=== PATIENT | male | born 1995 | race Caucasian/White ===

== ENCOUNTER → 2021-09-19 02:16 | Outpatient (CLI) | payer OTHER, SELFPAY ==
[2021-09-20 02:21] LABS: SARS-CoV-2 RNA PCR Positive
== END ==
PROVIDERS: PCP Family Medicine; Visit Provider Physician Assistant
DX: U07.1 COVID-19 (principal)
CPT/HCPCS: C9803; U0003; U0005

== ENCOUNTER 2022-10-02 12:59 | Outpatient (CLI) | payer OTHER, SELFPAY ==
[2022-10-02 14:27] LABS: Influenza A QL RT-PCR Negative (Negative); Influenza B QL RT-PCR Negative (Negative); SARS-CoV-2 RNA PCR Negative
== END 2022-10-02 13:00 | disposition home or self-care (01) ==
LOC: ANHLAB 13:01
PROVIDERS: PCP Family Medicine; Visit Provider Nurse Practitioner
DX: R68.89 Other general symptoms and signs (principal); Z20.822 Contact with and (suspected) exposure to COVID-19
CPT/HCPCS: 87636

== ENCOUNTER 2024-11-18 02:51 | Day surgery (SDC) | payer OTHER, SELFPAY ==
[2024-10-25 14:01] VITALS: BMI 26.2
--- OUTSIDE RECORDS SUMMARY | 2024-11-18 02:58 | XMS_ITS | Data Portability ---
Author Organization MD - [employer] [facility] Address [address] [place] [address] Care Team Providers Care Assembly Member Name Role Phone NAVI MACIEL Unavailable Assessment No assessment recorded. Plan of Treatment Reminders Order Date Submit Date Provider Last Modified By Organization Details Last Modified Time Details Appointments None recorded. Lab STI panel 2018 019 [email or web address] [place], [address] [place], [address], 9 10:20:55 Referral None recorded. Procedures None recorded. Surgeries None recorded. Imaging None recorded. Medication Orders azithromyc in 500 mg tablet 2018 019 INTERFACE [facility], [address] [place], [address], 9 13:22:25 Patient TargetsNo targets recorded. Patient Instructions Encounter Date Encounter Id Patient Instructions Last Modified By Organization Details Last Modified Time 05/28/2019 [id number] painful urinatio n (dysuria): care instructions Not available 05/28/2019 13:22:15 03 discussed wit h patient/parent Not available 05/28/2019 13:22:28 Reason for Referral None Reported. Results Created Date Observation Date Name Description Value Unit Range Abnormal Flag Note LastModifiedBy Organization Detail LastModifiedTime 05/28/20 19 06/04/2019 CT + NG RNA, PCR, unspe cifie d speci men chlamydia trachomatis, SONIA Negati ve negati ve Not Available [facility] ([facility]) [address], [place], [address], 06/04/2019 06:05:34 05/28/2006/04/2019 CT + NG RNA, PCR, unspe cifie d speci men neisseria gonorrhoeae, SONIA Negati ve negati ve Not Available [facility] ([facility]) [address], [place], [address], 06/04/2019 06:05:34 05/28/2006/01/2019 RPR (rapi d plasm a reagi n), serum RPR Non Reacti ve non reacti ve Not Available [facility] ([facility]) [address], [place], [address], 06/04/2019 06:05:35 05/28/2006/01/2019 HIV 1+2 AB + HIV 1 p24 Ag, quali tativ e immun oassa y, serum HIV screen 4TH generation wrfx Non Reacti ve non reacti ve Not Available [facility] ([facility]) [address], [place], [address], 06/04/2019 06:05:36 05/28/2006/01/2019 hepat itis C Ab, signa l-to- cutof f, serum or plasm a hep C virus Ab <0.1 s/co_ ratio 0.0-0. 9 Negat vic: < 0.8 Indet ermin ate: 0.8 - 0.9 Posit vic: > 0.9 The CDC recom mends that a posit vic HCV antib irving resul t be follo wed up with a HCV Nucle ic Acid Ampli ficat ion test (5507 13). Not Available [facility] ([facility]) [address], [place], [address], 06/04/2019 06:05:38 05/28/2006/01/2019 HSV 2 IgG Ab, QN, IA, serum hsv 2 IgG, type spec <0.91 index 0.00-0 .90 Negat vic <0.91 Equiv ocal 0.91 - 1.09 Posit vic >1.09 Note: Negat vic indic ates no antib odies detec carlie to HSV-2 . Equiv ocal may sugge st early infec tion. If clini elaine appro priat e, retes t at later date. Posit vic indic ates antib odies detec carlie to HSV-2 . Not Available [facility] ([facility]) [address], [place], [address], 06/04/2019 06:05:39 05/28/2006/01/2019 HBsAg (hepa titis B surfa ce Ag), EIA, serum HBsAg screen Negati ve negati ve Not Available [facility] ([facility]) [address], [place], [address], 06/04/2019 06:05:40 Result Notes None recorded. Problems No Known Problems Procedures Surgical History Date Name Laterality Status Provider Name and Address Organization Details Recorded Time Hernia repair completed CHAY THRASHER [employer], [employer] 05/28/2019 13:17:14 Imaging Results None recorded. Procedure Notes None recorded. Medical Equipment None Reported. Allergies No known drug allergies Medications Name Sig Start Date Stop Date Status Note LastModified by Organization Details LastModified Time azithromycin 500 mg tablet Take 2 tablets every day by oral route for 1 day. 2018 active Not Available Not Available Not Avai lable Vitals Date Recorded Body weight Body mass index (BMI) Body height Body temperature Heart rate Oxygen saturation Oxygen saturation in Arterial blood by Pulse oximetry Systolic blood pressure Diastolic blood pressure Provider Name and Address Organization Details Last Updated DateTime 9 59544.8 6 g 22.8 kg/m2 184.15 cm 97.5 [degF] 64 /min 97 % 97 % 125 mm[Hg] 76 mm[Hg] CHAY THRASHER [employer], [employer] [employer] 9 13:13:51 Social History Question Answer Notes LastModified by Organizat ion Details LastModified Time Tobacco Smoking Status Former Smoker CHAY cha [employer] 05/28/2019 13:14:43 Do You Have An Advance Directive? No [email or web address] Information not available 05/28/2019 What Is Your Level Of Alcohol Consumption? Moderate [email or web address] Information not available 05/28/2019 What Is Your Level Of Caffeine Consumption? Occasional [email or web address] Information not available 05/28/2019 How Much Tobacco Do You Chew? None [email or web address] Information not available 05/28/2019 What Type Of Diet Are You Following? REGULAR [email or web address] Information not available 05/28/2019 Which Illicit Or Recreational Drugs Have You Used? N/a [email or web address] Information not available 05/28/2019 Do You Or Have You Ever Used E-cigarettes Or Vape? Never Used Electronic Cigarettes [email or web address] Information not available 05/28/2019 Education 2 Year College [email or web address] Informat ion not available 05/28/2019 What Is Your Occupation? [employer]able [employer] Student [email or web address] Information not available 05/28/2019 Marital Status Single Informat ion not available 05/28/2019 What Was The Date Of Your Most Recent Tobacco Screening? 05/28/2019 Information not available 05/29/2019 General Stress Level Medium [email or web address] Information not available 05/28/2019 How Many Years Have You Smoked Tobacco? 3 [email or web address] Information not available 05/28/2019 Sex: Unknown Functional Status Question Answer Note LastModified by Organization D etails LastModified Time What is your exercise level? Heavy [email or web address] Information not available 05/28/2019 Mental Status None recorded. Family History Relationship Description Onset Age of this Age Resolved Age Notes LastModified by Organization Details LastModified Time Father No current problems or disability [email or web address] Not available 13:14:32 Mother No current problems or disability [email or web address] Not available 13:14:32 Notes:05/28/19 [place] Medical History Condition Response Seizures/Convulsions/Epilepsy N Anxiety N Development or behavioral disorders N Blood disorders N Hospitalizations N Congenital abnormalities N Depression N Heart problems N Skin Problems N Eating disorders N Ear or hearing problems N Headaches or dizziness N Bladder or kidney problems/disease N Diabetes N Serious injuries N Asthma or breathing problems N Treatment/Exposure to STD N Sleeping Problems N Cancer N Allergies N Liver disease N Thyroid disease N ADHD N Vision or eye problems N Drug/Alcohol Abuse N Muscle/joint/bone problems Y Mood D/O N Past Encounters Encounter ID Performer Location Encounter Start Date Encounter Closed Date Diagnosis/Indication Diagnosis SNOMED-CT Code Diagnosis ICD10 Code Diagnosis Note [id number] Navi Maciel MD [facility] [address] [address] 05/28/2019 13:06:09 05/31/2019 10:52:42 Dysuria 94267132 R30.0 Risk of ex posure to communicable disease 080552401 Z20.89 Health Concerns Section Related Observation LastModified by Organization Detai ls LastModified Time None Recorded Concern Status LastModified by Organization Details LastModified Time None Recorded Advance Directives Directive N: Payers Encounter Date Sequence Insurance Name Policy Number Policy Vásquez Covered Member ID Vásquez Member ID Guarantor Name 05/28/2019 1 [facility] [id number] Lamberto Gerber [id number] Milton Gerber Notes Date Note Type Note Provider Name and Address Organization Details Recorded Time 05/28/2019 text/html Sexually Transmi tted InfectionReported bypatient.Location:pen is Quality:worsening; irritation Severity:moderate Duration:constant Onset/Timing:last few days Context:last sexual activity: (3-4 wks) Modifying Factors:nothing gives relief Associated Symptoms:no abdominal pain; no anal warts; no back pain; no chills; no constipation; no diarrhea; no dribbling; no dysuria; no emptying; no fever; no frequency; no groin pain; no hematuria; no nausea; no nocturia; no odor; no painful intercourse; no vulvar/penile blisters; no vulvar/penile rash; no vulvar/penile warts; no perineum warts; no pruritus; no straining stream; no stress incontinence; no temperature; no urethral discharge; no urethral itch; no urgency; no urge incontinence; no vomiting; no weight loss; irritation, painful urination Navi Maciel MD [address] [place], [address], [place] - [facility] 05/28/2019 13:22:32
--- OUTSIDE RECORDS SUMMARY | 2024-11-18 02:58 | XMS_ITS | Patient Health Summary ---
Author Organization [facility] [email or web address] Address [address] [place] [address] Care Team Providers Care Loading Machine Operator Name Role Phone Unavailable Primary Care Provider Unavailabl e Note from [facility] [email or web address],non-owned Affiliates and Associated Physician Practices is amultiple site organization consisting of ambulatory clinics and hospital sitesin [place], [place], [place] and [place]. This disclosure is being madepursuant to the Care Everywhere program and may not contain all information available regarding this patient. Last updated 18.[facility] [email or web address] Social History Tobacco Use Types Packs/Day Years Used Date Smoking Tobacco: Never Assessed Sex and Gender Information Value Date Recorded Sex Assigned at Not on file Gender Identity Not on file Sexual Orientation Not on file Procedures * GROSS + MICRO EXAM(Performed 10/30/2001) * GROSS + MICRO EXAM(Performed 01/26/1999) Results * GROSS + MICRO EXAM (10/30/2001 7:45 AM TRIAGE SPECIALIST) Only the most recent of2 resultswithin the time period is included. Result CASE NUMBER [id number] [facility] PATH REPORT Comment: ORDERING PHYSICIAN CLEMENTINE [place] SPECIMEN TYPE Hernia Sac-R. Inguinal CLINICAL HISTORY The patient is a 5-year-old boy with a right inguinal hernia who underwent repair of the same. GROSS DESCRIPTION The specimen labeled with the patient's name and right inguinal hernia sac is received fresh for gross and microscopic examination and consists of a 1.5 x 1.0 x 0.2 cm membranous portion of glistening pink- lorenz soft tissue submitted in toto as A . (CT/dcr) MICROSCOPIC DESCRIPTION (1 H/E) DIAGNOSIS DIAGNOSIS HERNIA SAC-RIGHT INGUINAL - MESOTHELIAL LINED FIBROUS CONNECTIVE TISSUE CONSISTENT WITH HERNIA SAC. This case has been personally reviewed and interpreted by the attending (teaching) pathologist. Back Tender Paper Machine LUZ ELENA BOBBY RESIDENT IN PATHOLOG Ruth Bolton M.D. PATHOLOGIST Binh Rasmussen M.D. ELECTRONICALLY BINH LEE MISCELLANEOUS SAMPLES / Unknown 10/30/2001 7:45 AM TRIAGE SPECIALIST 10/30/2001 10:24 AM TRIAGE SPECIALIST Historical Provider LAB - PATHOLOGY/C YTOLOGY ORDERABLES [facility] PATH REPORT
--- OUTSIDE RECORDS SUMMARY | 2024-11-18 02:58 | XMS_ITS | Clinical Summary ---
Author Organization [facility] [employer] Address [address] [place] [address] Care Team Providers Care Rotor Winder Name Role Phone Unavailable Primary Care Provider Unavailabl e Source Comments [facility] [employer],non-owned Affiliates and Associated Physician Practices is amultiple site organization consisting of ambulatory clinics and hospital sitesin [place], [place], [place] and [place]. This disclosure is being madepursuant to the Care Everywhere program and may not contain all information available regarding this patient. Last updated 18.[facility] [employer] Social History Tobacco Use Types Packs/Day Years Used Date Smoking Tobacco: Never Assessed Sex and Gender Information Value Date Recorded Sex Assigned at Not on file Gender Identity Not on file Sexual Orientation Not on file Plan of Treatment Health Maintenance Due Date Last Done Comments HIV SCREENING 2012 HPV VACCINE (1 - Male 3-dose series) 2012 HEPATITIS C SCREENING 11/11/2015 DTAP/TDAP/TD VACCINES (1 - Tdap) 2016 HEPATITIS B VACCINE (1 of 3 - 19+ 3-dose series) 2016 COVID-19 VACCINE (1 - 2023-2 5 season) 2024 INFLUENZA VACCINE (#1) 2024 DEPRESSION SCREENING 09/22/2024 ZOSTER VACCINE (1 of 2) 2047 HIB VACCINE Aged Out No longer eligi ble based on patient's age to complete this topic MENINGOCOCCAL (Group B) VACCINE Aged Out No longer eligible based on patient's age to complete this topic MENINGOCOCCAL VACCINE Aged Out No bg giovanny eligible based on patient's age to complete this topic PNEUMOCOCCAL VACCINE Aged Out No long er eligible based on patient's age to complete this topic
--- OUTSIDE RECORDS SUMMARY | 2024-11-18 02:58 | XMS_ITS | Referral Summary ---
Author Organization [facility] Address [address] [place] [address] Care Team Providers Care Machining Department Supervisor Name Role Phone Unavailable Primary Care Provider Unavailabl e Source Comments [facility],non-owned Affiliates and Associated Physician Practices is amultiple site organization consisting of ambulatory clinics and hospital sitesin [place], [place], [place] and [place]. This disclosure is being madepursuant to the Care Everywhere program and may not contain all information available regarding this patient. Last updated 18.[facility] [employer] Social History Tobacco Use Types Packs/Day Years Used Date Smoking Tobacco: Never Assessed Sex and Gender Information Value Date Recorded Sex Assigned at Not on file Gender Identity Not on file Sexual Orientation Not on file Plan of Treatment Not on file
[2024-11-18 13:34] VITALS: BP 144/87; PULSE 82; RESP 14; TEMP 36.6; O2SAT 98
[2024-11-18] MEDS: LACTATED RINGERS 1,000 ML 150 ML IV CONT (13:39)
--- NOTE | 2024-11-18 15:12 | PM.IMHP ---
H&P: HPI History of Present Illness Date/Time: 11/18/24 15:12 Chief Complaint: Rectal bleeding Narrative: the patient was seen in our office for an episode of moderate to large rectal bleeding, bright red blood type. This is not associated with urgency, tenesmus, abdominal pain, fever or diarrhea. He is referred for colonoscopy. Review of Systems Review of Systems: All systems reviewed & are unremarkable except as noted in HPI and below PMFSH Past Medical History Medical History Closed fracture of left wrist Surgical History Surgical History H/O hernia repair (~1999) Second 2001 Social History Social History (Updated 08/17/24 @ 14:34 by Mervat Austin CMA) Smoking status: Never smoker Alcohol intake: current Drinks per week: 8 Alcohol use details: social Substance use: never Substance use type: does not use Living arrangements: with family Spiritual care concerns: No Meds Home Medications and Allergies Home Medications ?Medication ?Instructions ?Recorded ?Confirmed ?Type No Home Medications 07/20/24 10/25/24 History Allergies Allergy/AdvReac Type Severity Reaction Status Date / Time No Known Allergies Allergy Verified 11/18/24 13:32 Vital Signs Vital Signs - 24 hr 11/18/24 13:34 Temperature 98 F Pulse Rate 82 Respiratory Rate 14 Blood Pressure 144/87 H Pulse Oximetry 98 Oxygen Delivery Room Air Exam Const: General: cooperative and healthy appearing Resp: Effort & Inspection: normal respiratory effort and able to speak in complete sentences Auscultation: clear to auscultation bilaterally Cardio: Rate: regular rate Rhythm: regular rhythm GI: Inspection: normal to inspection GI Palp: No No hepatosplenomegaly present Auscultation: normal bowel sounds Rectal Exam: deferred Skin: General skin exam: normal color Psych: Appearance: grossly normal Mental Status: mental status grossly normal Assessment and Plan Assessment and plan (1) Hematochezia: Code(s): K92.1 - Melena Status: Acute Assessment and Plan: The patient is deemed a good candidate for the procedure. Consent signed. Will proceed.
--- NOTE | 2024-11-18 15:17 | WPDANESEPPF ---
Anes - Initial Pre Proc Eval Procedure: Operation Date: 11/18/24 13:45 Proposed Procedures p Colonoscopy - Oumar Sims MD Date/Time: 11/18/24 15:17 Surgeon: Oumar Sims MD Pre Op Diagnosis: Melena Patient Data Age: 29 Gender: M Height: 1.91 m Weight: 98.5 kg Last Vital Signs Temp 36.6 C 11/18/24 13:34 Pulse 82 11/18/24 13:34 Resp 14 11/18/24 13:34 BP 144/87 H 11/18/24 13:34 Pulse Ox 98 11/18/24 13:34 O2 Del Method Room Air 11/18/24 13:34 Allergies Allergy/AdvReac Type Severity Reaction Status Date / Time No Known Allergies Allergy Verified 11/18/24 13:32 Home Medications ?Medication ?Instructions ?Recorded ?Confirmed ?Type No Home Medications 07/20/24 10/25/24 History Patient hx anesthesia problems: none Family hx anesthesia problems: none Results Review: All pre-operative results and documents have been reviewed as part of the pre-operative evaluation. [facility] Past Medical History Medical History Closed fracture of left wrist Surgical History Surgical History H/O hernia repair (~1999) Second 2001 Social History Social History Smoking status: Never smoker Alcohol intake: current Drinks per week: 8 Alcohol use details: social Substance use: never Substance use type: does not use Living arrangements: with family Spiritual care concerns: No Anes - Eval Final PreProcedure Day of Procedure 11/18/24 15:17 Patient weight: normal Heart: regular rate and rhythm Lungs: clear to auscultation Airway: Mallampati scale class II Neurological: alert and oriented Last oral intake: >/= 8 hours ASA classification: II Emergent: no Anesthetic plan: proceed Anesthesia type and monitoring: general GIVS and standard monitoring Results Review: All pre-operative results and documents have been reviewed as part of the pre-operative evaluation. Patient states occasionally smoking cigarettes and drinking alcohol on the weekends. Informed Consent: The patient's anesthetic plan and its attendant risks and benefits were discussed with the patient/family/POA. Questions were solicited and answers provided to the satisfaction of the patient/family/POA.
[2024-11-18 15:38] VITALS: BP 113/65; PULSE 64; RESP 17; O2SAT 95
[2024-11-18 15:48] VITALS: BP 125/78; PULSE 91; RESP 26; O2SAT 98
[2024-11-18 15:58] VITALS: BP 111/82; PULSE 74; RESP 17; O2SAT 100
== END 2024-11-18 16:03 | disposition home or self-care (01) ==
PROVIDERS: PCP Nurse Practitioner; Referring Provider Nurse Practitioner Family; Visit Provider Internal Medicine Gastroenterology
PROC: 0DJD8ZZ Inspection of Lower Intestinal Tract, Via Natural or Artificial Opening Endoscopic (ICD-10-PCS; CPT 45378; principal; 2024-11-18 13:45)
DX: K62.5 Hemorrhage of anus and rectum (principal)
CPT/HCPCS: 45378; J2003; J2704; J7120